=== PATIENT | male | born 1955 | race Two or more races ===

== ENCOUNTER 2025-01-08 10:03 | Inpatient (IN) | payer OTHER, MEDICAID ==
[~2025-01-08] VITALS: Ht 175.3 cm; Wt 90.4 kg
--- NOTE | 2025-01-08 10:20 | ED.PDOC ---
History of Present Illness HPI Comments 69 y.o male with PMHx of hyperlipidemia, Depression, DM and HTN, presents to the ED via EMS for an evaluation of generalized weakness that started 2 days ago. EMS reports patient is on vacation with family, is coming from a hotel nearby. Family reported recent travel [place] 2 [place] ago, noticed that patient was unable to take deep breaths and was SOB with weakness. Family reported to EMS that patient has undiagnosed Autism and has a normal mental baseline however physically presents unwell. Upon ED arrival, patient was able to give medical history and name. No further symptoms or complaint reported. Patient denies any substance, alcohol or tobacco use. EMS noted a SPO2 of 88-90% RA with HR of 103 ST and BG of 132 on scene. Time Seen by MD: 10:09 Reviewed Notes: Nurses Notes, Horse Trekking Guide Notes, Medications, Allergies Allergies: Coded Allergies: NO KNOWN ALLERGIES (Unverified , 01/08/25) Home Meds Reported Medications Famotidine (Famotidine) 20 Mg Tab, 1 TAB PO BID 01/08/25 Rivaroxaban (Xarelto Tablet) 20 Mg Tb, 1 TAB PO DAILY 01/08/25 Cholecalciferol (Vitamin D-3 Super Strengt) 2,000 Unit Tab, 1 TAB PO DAILY 01/08/25 Risperidone (Risperidone) 1 Mg Tab, 1 TAB PO BID 01/08/25 Sertraline Hcl (Sertraline Hcl) 100 Mg Tab, 1.5 TAB PO DAILY 01/08/25 Trazodone Hcl (Trazodone Hcl) 50 Mg Tab, 1 TAB PO HS 01/08/25 Buspirone HCl (Buspirone HCl) 10 Mg Tab, 1 TAB PO TID 01/08/25 Tamsulosin Hcl (Tamsulosin Hcl) 0.4 Mg Cap, 1 CAP PO DAILY 01/08/25 Cetirizine HCl (Allergy Relief) 10 Mg Tab, 1 TAB PO DAILY 01/08/25 Atorvastatin Calcium (ATORVASTATIN CALCIUM) 40 Mg Tab, 1 TAB PO DAILY 01/08/25 Amlodipine Besylate (Amlodipine Besylate) 10 Mg Tab, 1 TAB PO DAILY 01/08/25 Metformin Hydrochloride (Metformin Hcl) 1,000 Mg Tab, 1 TAB PO BID 01/08/25 Information Source: Emergency Med Personnel Mode of Arrival: EMS Severity: Moderate Timing: Days (2) Duration: Since onset Prehospital treatment: 12 Lead EKG, Accucheck, Interior Design Director, IVF Associated signs and symptoms Generalized weakness with some altered mental status Past Medical History PAST MEDICAL HISTORY: Depression, DM, High Lipids Surgical History: Unknown Family History Family History: Unknown Social History Smoker: Non-Smoker Alcohol: Denies ETOH Use Drugs: Denies Drug Use Lives In: Home Constitutional: reports: weakness Unable to Obtain due to: Altered Mental Status Physical Exam General Appearance: Moderate Distress, Obese HEENT: Pale Conjuntivae (L), Pharynx Normal, TMs Normal Neck: Full Range of Motion, Non-Tender, Normal, Normal Inspection Respiratory: Chest Non-Tender, Lungs Clear, No Accessory Muscle Use, No Respiratory Distress, Normal Breath Sounds Cardiovascular: No Edema, No JVD, No Murmur, No Gallop, Normal Peripheral Pulses, Regular Rate/Rhythm Breast Exam: Deferred Gastrointestinal: No Organomegaly, Non Tender, No Pulsatile Mass, Normal Bowel Sounds, Soft Genitalia: Deferred Pelvic: Deferred Rectal: Deferred Extremities: No calf tenderness, Normal capillary refill, Normal inspection, Normal range of motion, Non-tender, No pedal edema Musculoskeletal : Apperance: Normal Neurologic: Alert, design engineering specialist II-XII nml as Tested, Motor Weakness, Normal Affect, Normal Mood, No Sensory Deficits Cerebellar Function: Normal Reflexes: Normal Skin: Dry, Normal Color, Warm Lymphatic: No Adenopathy Was a procedure done? Was a procedure done?: No EKG EKG : Pulse Rate (adult): 103 Cardiac Rhythm: ST Hypertrophy: LVH Differential Dx Considerations may include: Dehydration, Electrolyte imbalance, Sepsis, Viral Syndrome X-Ray, Labs, Meds, VS Vital Signs Date Time Temp Pulse Resp B/P (MAP) Pulse Ox O2 Delivery O2 Flow Rate FiO2 01/08/25 11:41 103 01/08/25 10:53 98.2 98 19 125/76 (92) 94 98.2 01/08/25 10:53 96 19 94 Nasal Cannula* 2 28 01/08/25 10:15 103 01/08/25 10:03 98.6 103 16 132/74 (93) 96 98.6 Lab Test 01/08/25 11:30 01/08/25 10:46 Range/Units SARS-CoV-2 Antigen (Rapid) Negative NEGATIVE White Blood Count 4.4 4.4-10.8 10^3/uL Red Blood Count 4.59 4.5-5.90 10^6/uL Hemoglobin 14.1 13.5-17.5 g/dL Hematocrit 41.1 41.0-53.0 % Mean Corpuscular Volume 89.5 80.0-100.0 fL Mean Corpuscular Hemoglobin 30.8 28.0-32.0 pg Mean Corpuscular Hemoglobin Concent 34.4 32.0-36.0 g/dL Red Cell Distribution Width 16.3 H 11.8-14.3 % Platelet Count 182 140-450 10^3/uL Mean Platelet Volume 7.7 6.9-10.8 fL Neutrophils (%) (Auto) 80.0 37.0-80.0 % Lymphocytes (%) (Auto) 9.9 L 10.0-50.0 % Monocytes (%) (Auto) 9.8 0.0-12.0 % Eosinophils (%) (Auto) 0.0 0.0-7.0 % Basophils (%) (Auto) 0.3 0.0-2.0 % Neutrophils # (Auto) 3.5 1.6-8.6 10 ^3/uL Lymphocytes # (Auto) 0.4 0.4-5.4 10 ^3/uL Monocytes # (Auto) 0.4 0-1.3 10 ^3/uL Eosinophils # (Auto) 0 0-0.8 10 ^3/uL Basophils # (Auto) 0 0-0.2 10 ^3/uL Nucleated Red Blood Cells 0.0 % Sodium Level 133 L 136-145 mmol/L Potassium Level 3.7 3.5-5.1 mmol/L Chloride Level 98 98-107 mmol/L Carbon Dioxide Level 24 20-31 mmol/L Anion Gap 11 5-15 Blood Urea Nitrogen 14 9-23 mg/dL Creatinine 0.91 0.700-1.30 mg/dL Glomerular Filtration Rate Calc 92 >90 mL/min BUN/Creatinine Ratio 15.4 10.0-20.0 Serum Glucose 121 H 74-106 mg/dL Lactic Acid Level 0.9 0.4-2.0 mmol/L Calcium Level 9.7 8.7-10.4 mg/dL Plasma/Serum Blood Alcohol < 3.0 <10 mg/dL CT HEAD WITHOUT CONTRAST IMPRESSION: Old right basal ganglia infarct. No acute intracranial abnormality. CHEST RADIOGRAPH IMPRESSION: Possible mild pulmonary vascular congestion or viral pneumonias The patient has a lactic acid which is within normal limits The alcohol level is negative The patient's CBC and chemistry panel are within normal limits The COVID test is negative The patient is being admitted at this time The patient remains with some altered mental status The patient's urine test is pending Images Reviewed?: Images reviewed and evaluated by me Time of 1ST Reevaluation: 10:14 Reevaluation 1ST: Unchanged Patient Education/Counseling: Other (Alert and oriented x 3 ) Family Education/Counseling: No Family Present Sepsis Sepsis Reasesment Focused Exam Orders: Laboratory Tests 01/08/25 10:46: Lactic Acid Level 0.9 Departure 1 Departure Time of Disposition: 12:56 Impression: Primary Impression: Generalized weakness Additional Impression: Autonomic dysfunction Disposition: ADMITTED INPATIENT Admit to: Med Surg Condition: Fair Critical Care Note Critical Care Time?: No Stability Stability form required: Yes Unstable for transfer: ED Physician Assesment (Clinical assesment) Heart Score Heart Score: Heart Score Response (Comments) Value History N/A 0 EKG N/A 0 Age N/A 0 Risk Factors N/A 0 Troponin N/A 0 Total 0 I personally scribed for TIFFANY ÁLVAREZ MD ([email or web address]) on 01/08/25 at 10:20. Electronically submitted by Becky Langley ([facility]). I personally scribed for TIFFANY ÁLVAREZ MD ([email or web address]) on 01/08/25 at 11:20. Electronically submitted by Becky Langley ([email or web address] I personally scribed for TIFFANY ÁLVAREZ MD ([email or web address]) on 01/08/25 at 11:41. Electronically submitted by Becky Langley ([facility]). TIFFANY ÁLVAREZ MD January 08, 2025 10:20
--- NOTE | 2025-01-08 10:52 | DVH ---
CHEST RADIOGRAPH Indication: aloc weakness Technique: Single frontal view of the chest was obtained COMPARISON: None FINDINGS: Lines and Tubes: None Lungs: Increased interstitial prominence Pleura: No effusion. No pneumothorax. Cardiomediastinal contours: Unremarkable Bones: Unremarkable IMPRESSION: Possible mild pulmonary vascular congestion or viral pneumonias
[2025-01-08 10:53] VITALS: PULSE 96; RESP 19; O2SAT 94
--- NOTE | 2025-01-08 11:11 | DVH ---
CT HEAD WITHOUT CONTRAST INDICATION: weakness EXAM DATE: 01/08/2025 10:25 AM COMPARISON: None RADIATION DOSE: CTDIvol: 61.64 mGy, DLP: 1214.5 mGy*cm PROCEDURE: CT scans of the head were obtained from the vertex to the skull base. and coronal reconst ructions were provided. All CT scans at this medical facility are performed using dose modulation techniques as appropriate t o a performed exam including the following: Automated exposure control was utilized; adjustment of th e MA and/or KV according to patient size; and use of iterative reconstruction technique. FINDINGS: Old right basal ganglia infarct. There is sulcal and ventricular prominence. The brain oth erwise shows normal morphology and ni-white matter differentiation, without intracranial hemorrhage , extra-axial fluid collection, mass effect or acute large vessel infarct. The ventricles are promine nt in size. The basal cisterns are patent. The skull and visible facial bones are intact. The paranas al sinuses, mastoid air cells and middle ear cavities are well-aerated. The soft tissues of the scalp are unremarkable. IMPRESSION: Old right basal ganglia infarct. No acute intracranial abnormality.
[2025-01-08 11:14] LABS: Basophils # (auto) 0 10 ^3/uL (0-0.2); Basophils % (auto) 0.3 % (0.0-2.0); Eosinophils # (auto) 0 10 ^3/uL (0-0.8); Hematocrit 41.1 % (41.0-53.0); Hemoglobin 14.1 g/dL (13.5-17.5); Lymphocytes # (auto) 0.4 10 ^3/uL (0.4-5.4); Lymphocytes % (auto) 9.9 % (10.0-50.0); Mean Corpuscular Hemoglobin 30.8 pg (28.0-32.0); Mean Corpuscular Hgb Conc. 34.4 g/dL (32.0-36.0); Mean Corpuscular Volume 89.5 fL (80.0-100.0); Monocytes # (auto) 0.4 10 ^3/uL (0-1.3); Monocytes % (auto) 9.8 % (0.0-12.0); Neutrophils # (auto) 3.5 10 ^3/uL (1.6-8.6); Platelet Count (auto) 182 10^3/uL (140-450); Red Blood Cells 4.59 10^6/uL (4.5-5.90); Red Cell Distribution Width 16.3 % (11.8-14.3); White Blood Cell 4.4 10^3/uL (4.4-10.8)
[2025-01-08 11:19] LABS: Chloride 98 mmol/L (98-107); Potassium 3.7 mmol/L (3.5-5.1)
[2025-01-08 11:20] LABS: Anion Gap 11 (5-15); Calcium 9.7 mg/dL (8.7-10.4); Carbon Dioxide 24 mmol/L (20-31)
[2025-01-08 11:25] LABS: BUN/Creatinine Ratio 15.4 (10.0-20.0); Blood Urea Nitrogen 14 mg/dL (9-23)
[2025-01-08 11:33] LABS: Blood Alcohol < 3.0 mg/dL (<10); Glucose 121 mg/dL (74-106); Sodium 133 mmol/L (136-145)
[2025-01-08 11:55] LABS: COVID19 ANTIGEN SOFIA FIA NEGATIVE (NEGATIVE)
[2025-01-08] MEDS ORDERED: DEXTROSE (50%) 50ML SYRG IV PRN (12:45)
[2025-01-08] MEDS ORDERED: IPRATROPIUM BROM 0.5 MG/2.5ML INH SOL NEB PRN (12:45)
[2025-01-08] MEDS ORDERED: DOCUSATE SOD 100 MG CAP PO PRN (12:45)
[2025-01-08] MEDS ORDERED: ONDANSETRON HCL 4 MG/2 ML VIAL IV PRN (12:45)
[2025-01-08] MEDS ORDERED: MORPHINE SULFATE INJ 2 MG/ml SYRG IV PRN (12:45)
[2025-01-08] MEDS ORDERED: HYDROcodone-ACET 5/325MG TAB PO PRN (12:45)
[2025-01-08] MEDS ORDERED: ALBUTEROL SULF 2.5 MG/0.5ML(0.5%) NEB SOLN NEB PRN (12:45)
[2025-01-08] MEDS ORDERED: ACETAMINOPHEN 325 MG TAB PO PRN (12:45)
[2025-01-08] MEDS ORDERED: RIV20T PO (12:47)
[2025-01-08] MEDS ORDERED: FAMO-12 PO (12:47)
[2025-01-08] MEDS ORDERED: RISP1TAB63 PO (12:47)
[2025-01-08] MEDS ORDERED: TRAZ-227 PO (12:47)
[2025-01-08] MEDS ORDERED: TAMS0.4C39 PO (12:47)
[2025-01-08] MEDS ORDERED: CETI-175 PO (12:47)
[2025-01-08] MEDS ORDERED: AMLO1TAB23 PO (12:47)
[2025-01-08] MEDS ORDERED: SERT-160 PO (12:47)
[2025-01-08] MEDS ORDERED: METF-372 PO (12:47)
[2025-01-08] MEDS ORDERED: ATOR40TA52 PO (12:47)
[2025-01-08] MEDS ORDERED: BUSP10TA31 PO (12:47)
[2025-01-08] MEDS ORDERED: CHOL20003 PO (12:47)
--- NOTE | 2025-01-08 12:56 | DVHHP2 ---
History of Present Illness Reason for Visit: Generalized weakness History of Present Illness Lior Jorge is a 69-year-old male with past medical history of diabetes, hypertension, hyperlipidemia, anxiety, depression, and autism, who was brought in for generalized weakness. Patient is drowsy on assessment. He will wake up when aroused, but falls back asleep. Sister was at the bedside and states he lives in [place] in their patent's house. Their parents have , and she would like him to move close to her, but he has been refusing to leave the house and move here. She does not know his full medical history and can not tell me why he takes Xarelto. She states their niece took him to [facility] a couple days ago and that is when he started not feeling well and getting weak. While at [facility] they had to rent a scooter because he was having difficulty walking around. Cardiovascular: CHF, HTN, hyperipidemia Psych: Anxiety, Depression Endocrine: Diabetes Smoke: No ALCOHOL: none Drugs: None Lives: Alone Domestic Violence: Neg Review of Systems Constitutional: Yes: Weakness, Malaise; No: Fever, Chills, Sweats, Other Eyes: No: Pain, Vision change, Conjunctivae inflammation, Eyelid inflammation, Other, Redness ENT: No: Ear pain, Ear discharge, Nose pain, Nose discharge, Nose congestion, Mouth pain, Mouth swelling, Throat pain, Throat swelling, Other Respiratory: No: Cough, Dry, Shortness of breath, SOB with excertion, Wheezing, Hemoptysis, Pleuritic Pain, Sputum, Wheezing, Other Cardiovascular: No: Chest Pain, Palpitations, Orthopnea, Paroxysmal Noc. Dyspnea, Edema, Lt Headedness, Other Gastrointestinal: No: Nausea, Vomiting, Abdominal Pain, Diarrhea, Constipation, Melena, Hematochezia, Other Genitourinary: No Dysuria, No Frequency, No Incontinence, No Hematuria, No Retention, No Other Musculoskeletal: No: other, neck pain, shoulder pain, arm pain, back pain, hand pain, leg pain, foot pain Skin: No: Rash, Lesions, Jaundice, Bruising, Other Neurological: No: Weakness, Numbness, Incoordination, Change in speech, Con fusion, Seizures, Other Allergies: Coded Allergies: NO KNOWN ALLERGIES (Unverified , 01/08/25) Medications Current Medications Medications Dose Ordered Sig/Rebecca Route Start Time Stop Time Status Last Admin Dose Admin Sodium Chloride 10 ml Q8HR IV 01/08/25 14:00 UNV Acetaminophen/ Hydrocodone Bitart 1 tab Q4HP PRN PO 01/08/25 12:45 UNV Ondansetron HCl 4 mg Q4HP PRN IV 01/08/25 12:45 UNV Docusate Sodium 100 mg BIDPRN PRN PO 01/08/25 12:45 UNV Acetaminophen 650 mg Q6HP PRN PO 01/08/25 12:45 UNV Morphine Sulfate 2 mg Q4HPRN PRN IV 01/08/25 12:45 UNV Diagnostic Test (Pha) 1 strip ACHS 01/08/25 17:00 UNV Insulin Human Regular HS SC 01/08/25 22:00 UNV Insulin Human Regular AC SC 01/08/25 17:00 UNV Dextrose 50 ml UD PRN IV 01/08/25 12:45 UNV Albuterol 2.5 mg Q4HPRN PRN NEB 01/08/25 12:45 UNV Ipratropium Willcox 0.5 mg Q4HPRN PRN NEB 01/08/25 12:45 UNV Exam Vital Signs Vital Signs Date Time Temp Pulse Resp B/P (MAP) Pulse Ox O2 Delivery O2 Flow Rate FiO2 01/08/25 11:41 103 01/08/25 10:53 98.2 19 125/76 (92) 94 98.2 01/08/25 10:53 Nasal Cannula* 2 28 General Appearance: Cooperative, Other (drowsy, oriented x 1) HEENT: Atraumatic, PERRLA Respiratory: Clear to auscultation, Normal air movement Cardiovascular: Regular rate, Normal S1, Normal S2 Abdominal: Normal bowel sounds, Soft, No tenderness, No hepatospenomegaly Extremities: No clubbing, No cyanosis, No edema, Normal pulses Skin: No rashes, No breakdown, No significant lesion Neuro: Other (weak) Psych/Mental Status: Mood NL Labs/Xrays Labs Test 01/08/25 11:30 01/08/25 10:46 Range/Units SARS-CoV-2 Antigen (Rapid) Negative NEGATIVE White Blood Count 4.4 4.4-10.8 10^3/uL Red Blood Count 4.59 4.5-5.90 10^6/uL Hemoglobin 14.1 13.5-17.5 g/dL Hematocrit 41.1 41.0-53.0 % Mean Corpuscular Volume 89.5 80.0-100.0 fL Mean Corpuscular Hemoglobin 30.8 28.0-32.0 pg Mean Corpuscular Hemoglobin Concent 34.4 32.0-36.0 g/dL Red Cell Distribution Width 16.3 H 11.8-14.3 % Platelet Count 182 140-450 10^3/uL Mean Platelet Volume 7.7 6.9-10.8 fL Neutrophils (%) (Auto) 80.0 37.0-80.0 % Lymphocytes (%) (Auto) 9.9 L 10.0-50.0 % Monocytes (%) (Auto) 9.8 0.0-12.0 % Eosinophils (%) (Auto) 0.0 0.0-7.0 % Basophils (%) (Auto) 0.3 0.0-2.0 % Neutrophils # (Auto) 3.5 1.6-8.6 10 ^3/uL Lymphocytes # (Auto) 0.4 0.4-5.4 10 ^3/uL Monocytes # (Auto) 0.4 0-1.3 10 ^3/uL Eosinophils # (Auto) 0 0-0.8 10 ^3/uL Basophils # (Auto) 0 0-0.2 10 ^3/uL Nucleated Red Blood Cells 0.0 % Sodium Level 133 L 136-145 mmol/L Potassium Level 3.7 3.5-5.1 mmol/L Chloride Level 98 98-107 mmol/L Carbon Dioxide Level 24 20-31 mmol/L Anion Gap 11 5-15 Blood Urea Nitrogen 14 9-23 mg/dL Creatinine 0.91 0.700-1.30 mg/dL Glomerular Filtration Rate Calc 92 >90 mL/min BUN/Creatinine Ratio 15.4 10.0-20.0 Serum Glucose 121 H 74-106 mg/dL Lactic Acid Level 0.9 0.4-2.0 mmol/L Calcium Level 9.7 8.7-10.4 mg/dL Plasma/Serum Blood Alcohol < 3.0 <10 mg/dL CHEST RADIOGRAPH FINDINGS: Lines and Tubes: None Lungs: Increased interstitial prominence Pleura: No effusion. No pneumothorax. Cardiomediastinal contours: Unremarkable Bones: Unremarkable IMPRESSION: Possible mild pulmonary vascular congestion or viral pneumonias CT HEAD WITHOUT CONTRAST FINDINGS: Old right basal ganglia infarct. There is sulcal and ventricular prominence. The brain otherwise shows normal morphology and ni-white matter differentiation, without intracranial hemorrhage, extra-axial fluid collection, mass effect or acute large vessel infarct. The ventricles are prominent in size. The basal cisterns are patent. The skull and visible facial bones are intact. The paranasal sinuses, mastoid air cells and middle ear cavities are well- aerated. The soft tissues of the scalp are unremarkable. IMPRESSION: Old right basal ganglia infarct. No acute intracranial abnormality. Assessment/Plan Assessment/Plan Assessment: Generalized weakness, Possible pneumonia, Diabetes, Depression, Hypertension, Hyperlipidemia, Plan: Admit to Med-Surg, Breathing treatments as needed, Supplemental oxygen as needed, IV antibiotics, Accu checks Q AC & HS with sliding scale, COVID and influenza swabs, Chest X-ray tomorrow morning, Morning labs, Home medications reconciled, Plan discussed with: Patient, Son (Sister) My Orders Orders - KYLIE FORREST Procedure Category Date Status Time Rapid Influenza A&B LAB 01/08/25 Logged 12:41 Admit ADMIT 01/08/25 Transmitted 12:41 Code Status CODE 01/08/25 Transmitted 12:41 2 Gm Sodium Diet DIET 01/08/25 Transmitted Lunch Sodium Chloride Lock PHA 01/08/25 Logged (Saline Lock Ns) 14:00 Hydrocodone-Acet PHA 01/08/25 Logged 5/325mg Tab (Wayne 12:45 Ondansetron Hcl PHA 01/08/25 Logged (Zofran) 12:45 Docusate Sodium PHA 01/08/25 Logged Capsule (Colace 12:45 Fall Risk Precautions SHEA 01/08/[address] 12:41 Complete Blood Count LAB 01/09/25 Verified 04:00 Comprehensive LAB 01/09/25 Verified Metabolic Panel 04:00 Pt Request For Service PT 01/08/25 Logged 12:41 Condition: Serious SHEA 01/08/25 In Process 12:41 Acetaminophen Tablet PHA 01/08/25 Logged (Tylenol Tablet) 12:45 Morphine Sulfate PHA 01/08/25 Logged Injection 12:45 Glucose Blood PHA 01/08/25 Logged (Accu-Chek Comfort 17:00 Insulin R (Human) PHA 01/08/25 Logged (Insulin R) 22:00 Insulin R (Human) PHA 01/08/25 Logged (Insulin R) 17:00 Dextrose 50% Syringe PHA 01/08/25 Logged 12:45 Albuterol Medneb PHA 01/08/25 Logged (Ventolin Medneb) 12:45 Ipratropium Medneb PHA 01/08/25 Logged (Atrovent Medneb) 12:45 Buspirone Hcl Tablet PHA 01/08/25 Verified (Buspar Tablet) 14:00 Famotidine Tablet PHA 01/08/25 Verified (Pepcid Tablet) 22:00 Risperidone Tablet PHA 01/08/25 Verified (Risperdal Tablet) 22:00 Tamsulosin PHA 01/09/25 Verified Hydrochloride (Flomax) 10:00 Trazodone Hcl PHA 01/08/25 Verified (Desyrel) 22:00 (Nf) Amlodipine PHA 01/09/25 Verified Besylate 10:00 (Nf) Atorvastatin PHA 01/09/25 Verified Calcium 10:00 (Nf) Cetirizine Hcl PHA 01/09/25 Verified (Allergy Relief) 10:00 (Nf) Cholecalciferol PHA 01/09/25 Verified (Vitamin D-3 Super 10:00 (Nf) Sertraline Hcl PHA 01/09/25 Verified 10:00 Date of Service: January 08, 2025 Billing Provider: KYLIE FORREST Common Visit Codes: 12399-IPIRLCT INP/OBS CARE (MOD) KYLIE FORREST January 08, 2025 12:56
[2025-01-08 13:01] VITALS: BP 125/76; PULSE 103; RESP 18; TEMP 98.2; O2SAT 94
[2025-01-08 14:05] LABS: Rapid Influenza B Negative (Negative)
[2025-01-08 14:09] LABS: Rapid Influenza A Positive (Negative)
[2025-01-08] MEDS: busPIRone HCL 10 MG TAB PO SCH (14:33)
[2025-01-08] MEDS: SODIUM CHLOR 0.9% PF (SALINE LOCK) 10ML VIAL/SYR IV SCH (14:33)
[2025-01-08] MEDS ORDERED: INSUINJ37 SC (15:32)
[2025-01-08 15:51] LABS: Urine Bacteria None Seen /hpf (None Seen)
[2025-01-08 16:05] LABS: Urine Blood Negative /uL (Negative); Urine Clarity Clear (Clear); Urine Color Yellow (Yellow); Urine Mucus FEW (None Seen); Urine Protein, UAD TRACE (Negative); Urine Specific Gravity 1.024 (1.001-1.035); Urine Squamous Epithelial Cell FEW /hpf (<5); Urine Urobilinogen Normal (Negative); Urine WBC 1 /HPF (0-3); Urine pH 5.5 (5.0-9.0)
[2025-01-08] MEDS: cefTRIAXone 1GM/50ML D5W 50 ML IV ONE (16:36)
[2025-01-08] MEDS: ACCU-CHEK COMFORT CURVE STRIP VI SCH (17:00)
[2025-01-08] MEDS: AZITHROMYCIN 500MG/ 250ML 250 ML IV ONE (18:27)
[2025-01-08] MEDS: InsuLIN REG 1unit/0.01ml Soln (100units/ml) SC SCH ×2 (18:29→21:53)
[2025-01-08 19:30] VITALS: RESP 18; O2SAT 95
[2025-01-08 21:07] VITALS: O2SAT 95
[2025-01-08] MEDS: INSULIN LANTUS (GLARGINE) 1 /0.01ml (100units/ml) SC SCH (21:53)
[2025-01-08] MEDS: risperiDONE 1 MG TAB PO SCH (22:00)
[2025-01-08] MEDS: FAMOTIDINE 20 MG TAB PO SCH (22:00)
[2025-01-08] MEDS: traZODone HCL 50 MG TAB PO SCH (22:01)
[2025-01-08] MEDS: ATORVASTATIN 20 MG TAB PO SCH (22:01)
--- NOTE | 2025-01-09 05:02 | DVH ---
CHEST RADIOGRAPH Indication: SOB Technique: Single frontal view of the chest was obtained COMPARISON: XY CHEST PORTABLE on DOS: 01/08/25 FINDINGS: Lungs: Low lung volumes. Diffuse increased interstitial prominence. Pleura: No effusion. No pneumothorax. Cardiomediastinal contours: Unremarkable Bones: Unremarkable Lines and Tubes: None IMPRESSION: Low lung volumes. Findings may represent infectious /inflammatory process like bronchitis /pneumonia , or pulmonary va scular congestion. Clinical correlation advised.
[2025-01-09 07:22] LABS: Alanine Aminotransferase 25 U/L (7-40); Albumin 4.3 g/dL (3.2-4.8); Alkaline Phosphatase 83 U/L (46-116); Anion Gap 10 (5-15); Aspartate Aminotransferase 33 U/L (13-40); BUN/Creatinine Ratio 13.1 (10.0-20.0); Blood Urea Nitrogen 11 mg/dL (9-23); Calcium 9.1 mg/dL (8.7-10.4); Carbon Dioxide 25 mmol/L (20-31); Chloride 99 mmol/L (98-107); Potassium 3.8 mmol/L (3.5-5.1)
[2025-01-09 07:23] LABS: Bilirubin, Total 0.4 mg/dL (0.2-1.0); Glucose 110 mg/dL (74-106); Sodium 134 mmol/L (136-145)
[2025-01-09 07:26] LABS: Basophils # (auto) 0 10 ^3/uL (0-0.2); Basophils % (auto) 0.5 % (0.0-2.0); Eosinophils # (auto) 0 10 ^3/uL (0-0.8); Eosinophils % (auto) 0.1 % (0.0-7.0); Hematocrit 41.6 % (41.0-53.0); Hemoglobin 14.1 g/dL (13.5-17.5); Lymphocytes # (auto) 0.7 10 ^3/uL (0.4-5.4); Lymphocytes % (auto) 17.9 % (10.0-50.0); Mean Corpuscular Hemoglobin 30.7 pg (28.0-32.0); Mean Corpuscular Hgb Conc. 33.9 g/dL (32.0-36.0); Mean Corpuscular Volume 90.7 fL (80.0-100.0); Monocytes # (auto) 0.4 10 ^3/uL (0-1.3); Monocytes % (auto) 10.2 % (0.0-12.0); Neutrophils # (auto) 2.9 10 ^3/uL (1.6-8.6); Neutrophils % (auto) 71.3 % (37.0-80.0); Nucleated Red Blood Cells % 0.1 %; Platelet Count (auto) 175 10^3/uL (140-450); Red Blood Cells 4.59 10^6/uL (4.5-5.90); Red Cell Distribution Width 16.1 % (11.8-14.3)
[2025-01-09 07:43] VITALS: PULSE 83; RESP 17; O2SAT 95
[2025-01-09 09:05] VITALS: O2SAT 95
[2025-01-09] MEDS: cefTRIAXone 1GM/50ML D5W 50 ML IV SCH (09:06)
[2025-01-09] MEDS: RIVAROXABAN 20 MG TAB PO SCH (10:03)
[2025-01-09] MEDS: CHOLECALCIFEROL (VITD3) 1,000UNIT=25mCg TAB PO SCH (10:03)
[2025-01-09] MEDS: TAMSULOSIN HYDROCHLORIDE 0.4 MG CAP PO SCH (10:04)
[2025-01-09] MEDS: amLODIPine BESYLATE 5 MG TAB PO SCH (10:04)
[2025-01-09] MEDS: SERTRALINE HCL 50 MG TAB PO SCH (10:05)
[2025-01-09] MEDS: AZITHROMYCIN 500MG/ 250ML 250 ML IV SCH (10:05)
--- NOTE | 2025-01-09 13:34 | ECG ---
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
--- NOTE | 2025-01-09 16:26 | DVHPN2 ---
Subjective Patient denies any symptoms. Reviewed: Care Plan, H&P, Labs, Medications Changes from previous H/P or p: No Changes General: Per HPI Eyes: No Pain, No Vision change, No Conjunctivae inflammation, No Eyelid inflammation, No Other, No Redness ENT: No Ear pain, No Ear discharge, No Nose pain, No Nose discharge, No Nose congestion, No Mouth pain, No Mouth swelling, No Throat pain, No Throat swelling, No Other Cardiovascular: No Chest Pain, No Palpitations, No Orthopnea, No Paroxysmal Noc. Dyspnea, No Edema, No Lt Headedness, No Other Respiratory: No Cough, No Dry, No Shortness of breath, No SOB with excertion, No Wheezing, No Hemoptysis, No Pleuritic Pain, No Sputum, No Other Gastrointestinal: No Nausea, No Vomiting, No Abdominal Pain, No Diarrhea, No Constipation, No Melena, No Hematochezia, No Other Genitourinary: No Dysuria, No Frequency, No Incontinence, No Hematuria, No Retention, No Other Musculoskeletal: No other, No neck pain, No shoulder pain, No arm pain, No back pain, No hand pain, No leg pain, No foot pain Skin: No Rash, No Lesions, No Jaundice, No Bruising, No Other Objective Vitals Vital Signs Date Time Temp Pulse Resp B/P (MAP) Pulse Ox O2 Delivery O2 Flow Rate FiO2 01/09/25 12:18 94 01/09/25 10:04 146/120 01/09/25 09:05 95 Nasal Cannula* 2 28 01/09/25 07:43 17 01/09/25 07:33 97.3 97.3 Intake/Output Intake and Output 01/09/25 07:00 Intake Total 300 ml Balance 300 ml Intake IV Total 300 ml General Appearance: Alert, Oriented X3, Cooperative, mild distress HEENT: Atraumatic, PERRLA Cardiovascular: Normal S1, Normal S2 Abdomen: Normal bowel sounds Musculoskeletal: Normal sensory function, Normal motor function Skin: Dry, Intact Psych/Mental Status: Mental status NL, Mood NL Medications Current Medications Medications Dose Ordered Sig/Rebecca Route Start Time Stop Time Status Last Admin Dose Admin Sodium Chloride 10 ml Q8HR IV 01/08/25 14:00 01/09/25 06:00 10 ML Acetaminophen/ Hydrocodone Bitart 1 tab Q4HP PRN PO 01/08/25 12:45 Ondansetron HCl 4 mg Q4HP PRN IV 01/08/25 12:45 Docusate Sodium 100 mg BIDPRN PRN PO 01/08/25 12:45 Acetaminophen 650 mg Q6HP PRN PO 01/08/25 12:45 Morphine Sulfate 2 mg Q4HPRN PRN IV 01/08/25 12:45 Diagnostic Test (Pha) 1 strip ACHS 01/08/25 17:00 01/09/25 11:43 1 STRIP Insulin Human Regular HS SC 01/08/25 22:00 Insulin Human Regular AC SC 01/08/25 17:00 01/09/25 11:53 2 UNITS Dextrose 50 ml UD PRN IV 01/08/25 12:45 Albuterol 2.5 mg Q4HPRN PRN NEB 01/08/25 12:45 Ipratropium [place] 0.5 mg Q4HPRN PRN NEB 01/08/25 12:45 Buspirone HCl 10 mg TID PO 01/08/25 14:00 01/09/25 14:18 10 MG Famotidine 20 mg BID PO 01/08/25 22:00 01/09/25 10:04 20 MG Risperidone 1 mg BID PO 01/08/25 22:00 01/09/25 10:04 1 MG Tamsulosin HCl 0.4 mg DAILY PO 01/09/25 10:00 01/09/25 10:04 0.4 MG Trazodone HCl 50 mg HS PO 01/08/25 22:00 01/08/25 22:01 50 MG Amlodipine Besylate 10 mg DAILY PO 01/09/25 10:00 01/09/25 10:04 10 MG Atorvastatin Calcium 40 mg HS PO 01/08/25 22:00 01/08/25 22:01 40 MG Patient Own Medication 1 tab QPM PO 01/09/25 18:00 Cholecalciferol 2,000 unit DAILY PO 01/09/25 10:00 01/09/25 10:03 2,000 UNIT Sertraline HCl 150 mg DAILY PO 01/09/25 10:00 01/09/25 10:05 150 MG Rivaroxaban 20 mg DAILY PO 01/09/25 10:00 01/09/25 10:03 20 MG Insulin Glargine 34 units HS SC 01/08/25 22:00 01/08/25 21:53 34 UNITS Azithromycin 250 ml @ 125 mls/hr DAILY IV 01/09/25 10:00 01/09/25 10:05 125 MLS/HR Ceftriaxone Sodium 50 ml @ 100 mls/hr DAILY@09 IV 01/09/25 09:00 01/09/25 09:06 100 MLS/HR Oseltamivir Phosphate 75 mg Q12HR PO 01/09/25 22:00 01/14/25 21:59 Laboratory Results Laboratory Tests 01/09/25 06:45 Chemistry Test 01/09/25 06:45 Albumin 4.3 g/dL (3.2-4.8) Calcium Level 9.1 mg/dL (8.7-10.4) Total Protein 7.0 g/dL (5.7-8.2) LFT Test 01/09/25 06:45 Alanine Aminotransferase (ALT) 25 U/L (7-40) Alkaline Phosphatase 83 U/L (46-116) Aspartate Amino Transferase (AST) 33 U/L (13-40) Total Bilirubin 0.4 mg/dL (0.2-1.0) Urinalysis Test 01/08/25 15:50 Urine Color Yellow (Yellow) Urine Clarity Clear (Clear) Urine pH 5.5 (5.0-9.0) Urine Specific [place] 1.024 (1.001-1.035) Urine Protein Trace (Negative) H Urine Ketones Trace (Negative) Urine Blood Negative /uL (Negative) Urine Nitrite Negative (Negative) Urine Bilirubin Negative (Negative) Urine Urobilinogen Normal mg/dL (Negative) Urine Leukocyte Esterase Negative /uL (Negative) Urine RBC None seen /hpf (0 - 3) Urine Microscopic WBC 1 /HPF (0-3) Urine Squamous Epithelial Cells Few /hpf (<5) Urine Bacteria None seen /hpf (None Seen) Urine Mucus Few (None Seen) Urine Glucose 1+ mg/dL (Normal) H Microbiology Microbiology Date/Time Source Procedure Growth Status 01/08/25 10:50 Blood Blood Culture - Preliminary NO GROWTH AFTER 24 HOURS OF INCUBATION. Resulted Labs and/or images reviewed: Labs reviewed by me, Image(s) reviewed by me Assessment/Plan Assessment/Plan Impression: -acute hypoxic respiratory failure -pneumonia secondary to influenza A -autism -history of CVA -diabetes mellitus Plan: -continue antibiotic therapy with azithromycin and ceftriaxone. Add Tamiflu 75 mg p.o. b.i.d. -regular insulin sliding scale -continue Xarelto given history of CVA -bronchodilators as needed -O2 supplementation to keep saturation greater than 92% -repeat labs and chest x-ray in a.m. -long discussion made with patient's nieceVannessa regarding diagnosis and plan of care. All questions answered. Total time spent with patient discussing and formulating plan of care: 35 minutes. Advanced care planning This medical document was created using an electronic medical record system with [employer] dictation system. Although this document has been carefully reviewed, there may still be some phonetic and typographical errors. These areas are purely typographical due to imperfections of the software programs, and do not reflect any compromise in the patient's medical care. Plan discussed with: Patient, Other (RN, Niece-Vannessa) My Orders Orders - KATLYN CISSE NP Procedure Category Date Status Time Oseltamivir 75mg PHA 01/09/25 In Process Capsule (Tamiflu 75mg 22:00 Drug Screen LAB 01/09/25 Logged 16:11 Basic Metabolic Panel LAB 01/10/25 Verified 04:00 Chest Portable XY 01/10/25 Logged 04:00 Complete Blood Count LAB 01/10/25 Verified 04:00 Hemoglobin A1c LAB 01/09/25 Transmitted 16:21 Date of Service: January 09, 2025 Billing Provider: KATLYN CISSE NP Common Visit Codes: [id number] INP/OBS CARE(HIGH) KATLYN CISSE NP January 09, 2025 16:26
[2025-01-09] MEDS: [UNRECOGNIZED DRUG - REMARK] PO SCH (19:11)
[2025-01-09 20:00] VITALS: PULSE 85; RESP 18; O2SAT 96
[2025-01-09 21:00] VITALS: BP 121/74; PULSE 85; RESP 18; TEMP 98.3; O2SAT 96
[2025-01-09 21:06] VITALS: O2SAT 96
[2025-01-09] MEDS: OSELTAMIVIR 75 MG CAP PO SCH (22:24)
[2025-01-10] VITALS (7 sets, daily range): BP systolic 115–134; BP diastolic 71–79; PULSE 74–85; RESP 16–18; TEMP 97.5–98.2; O2SAT 93–98
[2025-01-10 06:40] LABS: Basophils # (auto) 0 10 ^3/uL (0-0.2); Basophils % (auto) 0.4 % (0.0-2.0); Eosinophils # (auto) 0 10 ^3/uL (0-0.8); Eosinophils % (auto) 0.4 % (0.0-7.0); Hematocrit 41.3 % (41.0-53.0); Hemoglobin 14.4 g/dL (13.5-17.5); Lymphocytes # (auto) 0.7 10 ^3/uL (0.4-5.4); Lymphocytes % (auto) 19.1 % (10.0-50.0); Mean Corpuscular Hgb Conc. 34.8 g/dL (32.0-36.0); Mean Corpuscular Volume 89.1 fL (80.0-100.0); Monocytes # (auto) 0.4 10 ^3/uL (0-1.3); Monocytes % (auto) 11.3 % (0.0-12.0); Neutrophils # (auto) 2.6 10 ^3/uL (1.6-8.6); Neutrophils % (auto) 68.8 % (37.0-80.0); Platelet Count (auto) 194 10^3/uL (140-450); Red Blood Cells 4.63 10^6/uL (4.5-5.90); Red Cell Distribution Width 15.8 % (11.8-14.3); White Blood Cell 3.7 10^3/uL (4.4-10.8)
[2025-01-10 06:50] LABS: Calcium 9.8 mg/dL (8.7-10.4); Chloride 100 mmol/L (98-107); Potassium 3.9 mmol/L (3.5-5.1); Sodium 136 mmol/L (136-145)
[2025-01-10 06:51] LABS: Anion Gap 7 (5-15); Carbon Dioxide 29 mmol/L (20-31)
[2025-01-10 06:56] LABS: BUN/Creatinine Ratio 13.7 (10.0-20.0); Blood Urea Nitrogen 13 mg/dL (9-23)
[2025-01-10 07:05] LABS: Glucose 107 mg/dL (74-106)
--- NOTE | 2025-01-10 07:29 | DVH ---
EXAM: XR Chest, 1 View CLINICAL INDICATION: pna TECHNIQUE: Frontal view of the chest. COMPARISON: XY CHEST PORTABLE on DOS: 01/09/25, XY CHEST PORTABLE on DOS: 01/08/25 FINDINGS: LUNGS AND PLEURAL SPACES: Unremarkable. No consolidation. No pneumothorax. HEART: Unremarkable. No cardiomegaly. MEDIASTINUM: Unremarkable. Normal mediastinal contour. BONES/JOINTS: Unremarkable. No acute fracture. OTHER FINDINGS: . IMPRESSION: No acute cardiopulmonary process.
[2025-01-10] MEDS ORDERED: TAMIFLU PO (11:15)
--- NOTE | 2025-01-10 11:18 | DVHDS2 ---
Discharge Summary Date of Admission January 08, 2025 at 12:41 Date of Discharge: January 10, 2025 Admitting Diagnosis Generalized weakness, possible pneumonia Labs/Diagnostic Data: Laboratory Results Test 01/10/25 06:15 01/10/25 04:59 01/09/25 06:45 01/08/25 15:50 POC Glucose 112 mg/dl (70-106) White Blood Count 3.7 10^3/uL (4.4-10.8) Red Blood Count 4.63 10^6/uL (4.5-5.90) Hemoglobin 14.4 g/dL (13.5-17.5) Hematocrit 41.3 % (41.0-53.0) Mean Corpuscular Volume 89.1 fL (80.0-100.0) Mean Corpuscular Hemoglobin 31.0 pg (28.0-32.0) Mean Corpuscular Hemoglobin Concent 34.8 g/dL (32.0-36.0) Red Cell Distribution Width 15.8 % (11.8-14.3) Platelet Count 194 10^3/uL (140-450) Mean Platelet Volume 7.9 fL (6.9-10.8) Neutrophils (%) (Auto) 68.8 % (37.0-80.0) Lymphocytes (%) (Auto) 19.1 % (10.0-50.0) Monocytes (%) (Auto) 11.3 % (0.0-12.0) Eosinophils (%) (Auto) 0.4 % (0.0-7.0) Basophils (%) (Auto) 0.4 % (0.0-2.0) Neutrophils # (Auto) 2.6 10 ^3/uL (1.6-8.6) Lymphocytes # (Auto) 0.7 10 ^3/uL (0.4-5.4) Monocytes # (Auto) 0.4 10 ^3/uL (0-1.3) Eosinophils # (Auto) 0 10 ^3/uL (0-0.8) Basophils # (Auto) 0 10 ^3/uL (0-0.2) Nucleated Red Blood Cells 0.0 % Sodium Level 136 mmol/L (136-145) Potassium Level 3.9 mmol/L (3.5-5.1) Chloride Level 100 mmol/L (98-107) Carbon Dioxide Level 29 mmol/L (20-31) Anion Gap 7 (5-15) Blood Urea Nitrogen 13 mg/dL (9-23) Creatinine 0.95 mg/dL (0.700-1.30) Glomerular Filtration Rate Calc 87 mL/min (>90) BUN/Creatinine Ratio 13.7 (10.0-20.0) Serum Glucose 107 mg/dL (74-106) Calcium Level 9.8 mg/dL (8.7-10.4) Hemoglobin A1c 6.6 % A1C (<5.7) Total Bilirubin 0.4 mg/dL (0.2-1.0) Aspartate Amino Transferase (AST) 33 U/L (13-40) Alanine Aminotransferase (ALT) 25 U/L (7-40) Alkaline Phosphatase 83 U/L (46-116) Total Protein 7.0 g/dL (5.7-8.2) Albumin 4.3 g/dL (3.2-4.8) Urine Color Yellow (Yellow) Urine Clarity Clear (Clear) Urine pH 5.5 (5.0-9.0) Urine Specific [place] 1.024 (1.001-1.035) Urine Protein Trace (Negative) Urine Ketones Trace (Negative) Urine Blood Negative /uL (Negative) Urine Nitrite Negative (Negative) Urine Bilirubin Negative (Negative) Urine Urobilinogen Normal mg/dL (Negative) Urine Leukocyte Esterase Negative /uL (Negative) Urine RBC None seen /hpf (0 - 3) Urine Microscopic WBC 1 /HPF (0-3) Urine Squamous Epithelial Cells Few /hpf (<5) Urine Bacteria None seen /hpf (None Seen) Urine Mucus Few (None Seen) Urine Glucose 1+ mg/dL (Normal) Test 01/08/25 13:15 01/08/25 11:30 01/08/25 10:46 Influenza Type A Antigen Positive (Negative) Influenza Type B Antigen Negative (Negative) SARS-CoV-2 Antigen (Rapid) Negative (NEGATIVE) Lactic Acid Level 0.9 mmol/L (0.4-2.0) Plasma/Serum Blood Alcohol < 3.0 mg/dL (<10) Other Laboratory Tests 01/10/25 04:59 Brief Hx & Hospital Course: History of Present Illness Lior Jorge is a 69-year-old male with past medical history of diabetes, hypertension, hyperlipidemia, anxiety, depression, and autism, who was brought in for generalized weakness. Patient is drowsy on assessment. He will wake up when aroused, but falls back asleep. Sister was at the bedside and states he lives in [place] in their patent's house. Their parents have , and she would like him to move close to her, but he has been refusing to leave the house and move here. She does not know his full medical history and can not tell me why he takes Xarelto. She states their niece took him to [facility] a couple days ago and that is when he started not feeling well and getting weak. While at [facility] they had to rent a scooter because he was having difficulty walking around. Course of hospitalization: Patient was found to have atypical pneumonia on chest x-ray. Patient was also positive for influenza A. Patient was treated with empiric antibiotic therapy for bacterial pneumonia as well as being started on Tamiflu. Today, the patient has been weaned off of O2 supplementation. Patient's blood sugars have been controlled while in the hospital. Patient is now more alert and wishing to be discharged home. Discussion was made with the patient's family member, Vannessa, who is agreeable to retrieve patient today at time of discharge. Patient will be continued on Tamiflu and home medications. All questions answered. Physical examination General: Alert and Oriented x3. No acute distress. Well-nourished. Eyes: EOMI. Anicteric. HENT: Moist mucous membranes. Lungs: Clear to auscultation bilaterally. No accessory muscle use. Cardiovascular: Regular rate and rhythm. No murmur. No JVD. Abdomen: Soft, non-tender and non-distended. No palpable masses. Extremities: No edema. Non-tender. Skin: No rashes or lesions. Warm. Neurologic: No focal neurological deficits. CN II-XII grossly intact, but not individually tested. Psychiatric: Cooperative. Appropriate mood and affect. Total time spent with patient discussing and formulating plan of care: 35 minutes. This medical document was created using an electronic medical record system with [employer] system. Although this document has been carefully reviewed, there may still be some phonetic and typographical errors. These areas are purely typographical due to imperfections of the software programs, and do not reflect any compromise in the patient's medical care. Condition at Discharge: Guarded Final Diagnosis/Problems List Acute hypoxic respiratory failure secondary to influenza pneumonia Discharge Disposition: Home Discharge Instruct/Medications Diet: Consistent carbohydrate Activity: No Restrictions, As Tolerated Follow Up/Referral: Follow up with PCP back in [place] Medications: Continue all home medications Tamiflu 75 mg p.o. b.i.d. for a total of five days 36 Discharge Statement: "Patient was advised to return to the ER or call 911 if any headaches, dizziness, shortness of breath, chest pain, abdominal pain, bleeding, fevers, or worsening of medical condition. Patient was counseled about treatment plan, medications, possible side effects, patientverbalized understanding. All questions were answered to the best of my ability. This discharge took greater then 30 minutes in planning, reviewing documentation, counseling the patient, and discussing with other team members." ASSESSMENT ASSESSMENT Assessment Acute hypoxic respiratory failure secondary to influenza pneumonia Date of Service: January 10, 2025 Billing Provider: KATLYN CISSE NP Common Visit Codes: 11329-AWI/OBS DISCH DAY >30min KATLYN CISSE NP January 10, 2025 11:18
== END 2025-01-10 12:45 | disposition home or self-care (01) | DRG 193 ==
LOC: ER 10:03 → EDBD 10:03 → OVERFLOW 12:41 → CENTRAL 01-09 18:45
PROVIDERS: ADMIT Nurse Practitioner Acute Care; ATTEND Nurse Practitioner Acute Care
DX: J10.08 Influenza due to other identified influenza virus with other specified pneumonia (principal); J96.01 Acute respiratory failure with hypoxia; F84.0 Autistic disorder; E78.5 Hyperlipidemia, unspecified; F32.A Depression, unspecified; F41.9 Anxiety disorder, unspecified; I11.0 Hypertensive heart disease with heart failure; Z20.822 Contact with and (suspected) exposure to COVID-19; I50.9 Heart failure, unspecified; G90.89 Other disorders of autonomic nervous system; Z86.73 Personal history of transient ischemic attack (TIA), and cerebral infarction without residual deficits; Z79.84 Long term (current) use of oral hypoglycemic drugs; Z79.899 Other long term (current) drug therapy
CPT/HCPCS: 36415; 70450; 71045; 80048; 80053; 80320; 81001; 82962; 83036; 83605; 85025; 87040; 87426; 87804; 93005; G0378; J1815